=== PATIENT | female | born 1965 | race African-American/Black ===

== ENCOUNTER → 2016-03-07 | Outpatient (CLI) | payer OTHER ==
[~2016-03-07] VITALS: Ht 167.6 cm; Wt 104.3 kg
[~2016-03-07] MED LIST: NOHOMEMEDS
== END | disposition home or self-care (01) ==
LOC: AMB 11:00
PROC: 0DJD8ZZ Inspection of Lower Intestinal Tract, Via Natural or Artificial Opening Endoscopic (ICD-10-PCS; principal; 2016-03-07)
DX: Z12.11 Encounter for screening for malignant neoplasm of colon (principal); K64.9 Unspecified hemorrhoids
CPT/HCPCS: B4087; J2250; J3010